=== PATIENT | female | born 1990 ===

== ENCOUNTER 2017-02-28 12:27 | Emergency (ER) | payer OTHER ==
[2017-02-28 12:30] VITALS: BMI 21.2
[2017-02-28 12:34] VITALS: BP 110/74; PULSE 83; RESP 18; TEMP 98.8; O2SAT 98
--- NOTE | 2017-02-28 13:29 | C.PDOC ---
History Of Present Illness 26 yr old female presents to the ER stating 2 days ago she cut her left index finger while cutting lettuce. Patient states she is right handed. Currently denies pain, bleeding, hand pain, weakness or numbness. Time Seen by Provider: 02/28/17 12:38 Chief Complaint (Nursing): Abnormal Skin Integrity History Per: Patient History/Exam Limitations: no limitations Onset/Duration Of Symptoms: Days (2) Past Medical History Reviewed: Historical Data, Nursing Documentation, Vital Signs Vital Signs: Last Vital Signs Temp 98.8 F 02/28/17 12:31 Pulse 83 02/28/17 12:31 Resp 18 02/28/17 12:31 BP 110/74 02/28/17 12:31 Pulse Ox 98 02/28/17 13:29 - Medical History PMH: Asthma - [facility] APPLICATION OF SPLINT (04/01/14) Family History: States: No Known Family Hx - Social History Hx Tobacco Use: No Hx Alcohol Use: No Hx Substance Use: No - Immunization History Hx Tetanus Toxoid Vaccination: Yes Hx Influenza Vaccination: Yes Hx Pneumococcal Vaccination: Yes Review Of Systems Except As Marked, All Systems Reviewed And Found Negative. Musculoskeletal: Positive for: Other ((+) Left hand index finger cut.). Negative for: Hand Pain Neurological: Negative for: Weakness, Numbness Physical Exam - Physical Exam Appears: Non-toxic, No Acute Distress Skin: Warm, Dry, No Rash Head: Atraumatic, Normacephalic Oral Mucosa: Moist Chest: Symmetrical, No Tenderness Cardiovascular: Rhythm Regular, No Murmur Respiratory: Normal Breath Sounds, No Rales, No Rhonchi, No Stridor, No Wheezing Extremity: Normal ROM, Capillary Refill (<2), No Swelling, Other (Left Index - Laceration through the nail.) ED Course And Treatment O2 Sat by Pulse Oximetry: 98 (RA ) Pulse Ox Interpretation: Normal Disposition - Disposition Referrals: [facility] [Outside] [facility] [Outside] [facility], [Non-Staff] - Disposition: HOME/ ROUTINE Disposition Time: 12:40 Condition: GOOD Additional Instructions: Thank you for letting us take care of you today. Your provider was Dr. Mcleod. You were treated for finger laceration. The emergency medical care you received today was directed at your acute symptoms. If you were prescribed any medication, please fill it and take as directed. It may take several days for your symptoms to resolve. Return to the Emergency Department if your symptoms worsen, do not improve, or if you have any other problems. Please contact your doctor or call one of the physicians/clinics you have been referred to that are listed on the Patient Visit Information form that is included in your discharge packet. Bring any paperwork you were given at discharge with you along with any medications you are taking to your follow up visit. Our treatment cannot replace ongoing medical care by a primary care provider (PCP) outside of the emergency department. Thank you for allowing the [facility] team to be part of your care today. Follow up with your doctor or our clinic in 3-5 days for outpatient care. Instructions: Finger Laceration (ED) Forms: [employer] ([place]ian) - Clinical Impression Clinical Impression: Finger laceration - Scribe Statement The provider has reviewed the documentation as recorded by the Bárbara Baca Provider Attestation: All medical record entries made by the Scribe were at my direction and personally dictated by me. I have reviewed the chart and agree that the record accurately reflects my personal performance of the history, physical exam, medical decision making, and the department course for this patient. I have also personally directed, reviewed, and agree with the discharge instructions and disposition.
== END 2017-02-28 13:00 | disposition home or self-care (01) ==
LOC: C.ER 12:27
DX: S61.211A Laceration without foreign body of left index finger without damage to nail, initial encounter (principal); W26.0XXA Contact with knife, initial encounter; Y93.G1 Activity, food preparation and clean up; Y92.89 Other specified places as the place of occurrence of the external cause; Y99.0 Civilian activity done for income or pay